=== PATIENT | female | born 1955 | race Caucasian/White ===

== ENCOUNTER 2020-12-22 14:03 | Outpatient (CLI) | payer MEDICARE, BC, SELFPAY ==
--- NOTE | 2020-12-22 14:16 | MM_ITS ---
WS: [id number] BILATERAL DIGITAL SCREENING MAMMOGRAPHY WITH CAD CLINICAL INFORMATION: SCREENING HISTORY: Screening mammogram. No current complaints. COMPARISON: 018 TECHNIQUE: Bilateral CC and MLO views. FINDINGS: Bilateral breast implants are unchanged in appearance. Ruptured and collapsed left breast i mplant. This is unchanged. Capsular calcifications bilaterally. Intact right breast implant. The breasts are composed of heterogeneous fibroglandular density tissue, which can limit the detectio n of small underlying mass lesions. Asymmetric density upper outer left breast best seen on the MLO v iew measuring 12 mm is new from previous. Recommend spot compression views and ultrasound for further evaluation. Right breast is unremarkable and unchanged. MM/[place] [id number] IMPRESSION: BI-RADS: 0-Incomplete: Need additional imaging evaluation FOLLOW UP: Need Additional Imaging RECOMMEND LEFT BREAST DIAGNOSTIC MAMMOGRAPHY AND ULTRASOUND.
--- NOTE | 2020-12-22 14:57 | XR_ITS ---
WS: [id number] Bone mineral density performed on a Clew, 12/22/2020. Clinical data: POSTMENOPAUSAL Findings: The first 4 lumbar vertebral bodies demonstrated the bone mineral density of 1.007 g/cm2 for a young adult T score of -1.4. Measurement of the left hip reveals a bone mineral density of 0.810 g/cm2 with a young adult T score of -1.6. Measurement of the right hip reveals the bone mineral density of 0.809 g/cm2 for young adult T score of -1.6. XR/XR DEXA axial skeleton* [id number] Impression: Osteopenia of the lumbar spine and both hips.
== END 2020-12-22 14:04 | disposition home or self-care (01) ==
PROVIDERS: PCP Family Medicine; Visit Provider Family Medicine
DX: Z12.31 Encounter for screening mammogram for malignant neoplasm of breast (principal); Z78.0 Asymptomatic menopausal state; M85.88 Other specified disorders of bone density and structure, other site; R92.1 Mammographic calcification found on diagnostic imaging of breast
CPT/HCPCS: 77067; 77080

== ENCOUNTER 2021-01-23 07:34 | Outpatient (CLI) | payer MEDICARE, BC, SELFPAY ==
--- NOTE | 2021-01-23 07:48 | US_ITS ---
WS: [id number] LEFT DIGITAL MAMMOGRAPHY WITH CAD CLINICAL INFORMATION: LT BREAST ASYMMETRIC DENSITY COMPARISON: None. TECHNIQUE: 3 views of the left breast were obtained. FINDINGS: The left breast is composed of heterogeneous fibroglandular density tissue, which can limit the detec tion of small underlying mass lesions. Stable asymmetric density upper outer left breast measuring 12 mm is stable. Ultrasound is pending. ULTRASOUND BREAST LEFT TECHNIQUE: Ultrasound left breast focused area of concern. CLINICAL INFORMATION: LT BREAST ASYMMETRIC DENSITY COMPARISON: None. FINDINGS: Dense hypoechoic lesion at the 2:00 position 2 cm from the nipple. This measures 1.0 x 0.85 x 0.85 cm . This lesion is indeterminant and recommend further evaluation with ultrasound-guided biopsy. US/US breast LT limited* [id number] IMPRESSION: BI-RADS: 4-Suspicious Finding-Biopsy Should Be Considered FOLLOW UP: US Guided Biopsy Recommended
== END 2021-01-23 07:35 | disposition home or self-care (01) ==
LOC: RADSHAW 07:40
PROVIDERS: PCP Family Medicine; Visit Provider Family Medicine
DX: N64.89 Other specified disorders of breast (principal); N63.11 Unspecified lump in the right breast, upper outer quadrant
CPT/HCPCS: 76642; 77065

== ENCOUNTER 2021-02-06 14:29 | Outpatient (CLI) | payer MEDICARE, BC, SELFPAY ==
--- NOTE | 2021-02-06 14:47 | XRR_ITS ---
PROCEDURE INFORMATION: Exam: XR Chest Exam date and time: 02/06/2021 3:10 PM Age: 65 years old Clinical indication: Cough TECHNIQUE: Imaging protocol: XR of the chest. Views: 2 views. COMPARISON: No relevant prior studies available. FINDINGS: Lungs: Unremarkable. No consolidation. Pleural spaces: Unremarkable. No pleural effusion. No pneumothorax. Heart/Mediastinum: Unremarkable. No cardiomegaly. Bones/joints: Degenerative change is identified in the spine. There is no evidence for acute fracture or malalignment. XR/XR chest 2V* [id number] IMPRESSION: There are no acute concerning abnormalities.
== END 2021-02-06 14:30 | disposition home or self-care (01) ==
PROVIDERS: PCP Family Medicine; Visit Provider Family Medicine
DX: R05 Cough (principal)
CPT/HCPCS: 71046

== ENCOUNTER 2021-02-10 07:20 | Outpatient (CLI) | payer MEDICARE, BC, SELFPAY ==
--- NOTE | 2021-02-10 07:34 | US_ITS ---
WS: [id number] ULTRASOUND LEFT BREAST HISTORY: L BREAST ABNORMAL MAMMOGRAM COMPARISON: 01/23/2021 TECHNIQUE: 2-D and Doppler. Mass recently described at 2:00 is no longer apparent. There is dense fibroglandular tissue but there is no masslike structure or increased vascularity. At this time no biopsy is recommended. Recommend follow-up 6 month diagnostic LEFT mammogram. Discuss ed these findings with the patient. US/US breast LT limited* [id number] IMPRESSION: BI-RADS: 3-Probably Benign FOLLOW-UP: 6 Month Follow-up No biopsy performed today as there were no concerning findings in the LEFT [address] st at 2:00. Recommend follow-up diagnostic mammogram and possible ultrasound in 6 months.
== END 2021-02-10 07:21 | disposition home or self-care (01) ==
LOC: RAD 07:28
PROVIDERS: PCP Family Medicine; Visit Provider Family Medicine
DX: R92.8 Other abnormal and inconclusive findings on diagnostic imaging of breast (principal)
CPT/HCPCS: 19083; 76642

== ENCOUNTER 2021-12-18 08:13 | Outpatient (CLI) | payer MEDICARE, BC, SELFPAY ==
--- NOTE | 2021-12-18 08:25 | CT_ITS ---
WS: [id number] CT scan of the abdomen with Oral and IV contrast. Additional two-dimensional coronal and sagittal rec onstruction was performed. Clinical Data: ABD PAIN Comparison: None. DLP: 494.[address] scans at [facility] use at least one of these dose optimization techniques: automated e xposure control; mA and/or kV adjustment per patient size (includes targeted exams where dose is matc hed to clinical indication); or iterative reconstruction. Findings: The lower lungs show no nodules, masses or effusions. The liver, gallbladder, spleen, adrenal glands and pancreas are normal. The kidneys show equal bilateral contrast excretion with no cyst or masses. No intrarenal calcificati ons or hydronephrosis is seen The abdominal aorta is normal in size. No appendicitis or diverticulitis is seen. Oral contrast is in the stomach and small bowel and there is no bowel dilatation. No abscess, adenopathy, ascites, mass, obstruction or free air is seen. The bones of the lower thorax and lumbar spine are normal CT/CT abdomen w con* [id number] Impression: Negative CT scan of the abdomen1.
[2021-12-18] MEDS: iohexol 300 mg/mL 50 mL Btl PO (09:31)
[2021-12-18 09:57] LABS: Blood Urea Nitrogen 13 mg/dL (8-23); Glomerular Filtration Rate 71.5 mL/min (90-130)
[2021-12-18] MEDS: iohexol 300 mg/mL 100 mL Btl IV (10:00)
== END 2021-12-18 08:14 | disposition home or self-care (01) ==
LOC: RAD 08:15
PROVIDERS: PCP Family Medicine; Visit Provider Family Medicine
DX: R10.13 Epigastric pain (principal); R07.81 Pleurodynia
CPT/HCPCS: 74160; 82565; 84520

== ENCOUNTER 2024-04-14 13:09 | Outpatient (CLI) | payer MEDICARE, BC, SELFPAY ==
--- NOTE | 2024-04-14 13:30 | XR_ITS ---
WS: [id number] SCREENING DEXA SCAN SIGFOX CLINICAL INFORMATION: screening COMPARISON: 2020 FINDINGS: The L1-L4 bone mineral density measures 0.984 g/cm2. This corresponds to a T score score of -1.6 and Z score of -0.1. Left femoral neck bone mineral density measures 0.791 g/cm2. This corresponds to a T score of -1.7 an d Z score of -0.4. Right femoral neck bone mineral density measures 0.808 g/cm2. This corresponds to a T score -1.6of an d Z score of -0.2. Mean femoral neck bone mineral density measures 0.799 g/cm2. This corresponds to a T score of -1.7 an d Z score of -0.3. XR/XR DEXA axial skeleton* [id number] IMPRESSION: Osteopenia lumbar spine. Osteopenia femoral necks. Patient's FRAX calculated 10 year probability for major osteoporotic fracture i s 12.8% and osteoporotic hip fracture is 2.9%. Lumbar spine bone mineral density decreased -2.3% Femoral bone mineral density decreased -1.2%
--- NOTE | 2024-04-14 14:00 | MM_ITS ---
WS: [id number] BILATERAL 3D TOMOSYNTHESIS DIGITAL SCREENING MAMMOGRAPHY WITH CAD CLINICAL INFORMATION: screening HISTORY: Screening mammogram. No current complaints. COMPARISON: 2018 TECHNIQUE: Bilateral CC and MLO views. FINDINGS: Stable deflation of the LEFT breast implant. Capsular calcifications RIGHT breast implant. The breasts are composed of heterogeneous fibroglandular density tissue, which can limit the detectio n of small underlying mass lesions. No suspicious mass, asymmetry, calcifications, or architectural d istortion. No evidence of malignancy. Stable punctate calcifications LEFT breast. MM/[place] [id number] IMPRESSION: BI-RADS: 2-Benign FOLLOW UP: 1 Year Follow-up Recommend return to annual screening mammography.
== END 2024-04-14 13:10 | disposition home or self-care (01) ==
LOC: RAD 13:10
PROVIDERS: PCP Family Medicine; Visit Provider Family Medicine
DX: Z12.31 Encounter for screening mammogram for malignant neoplasm of breast (principal); Z00.00 Encounter for general adult medical examination without abnormal findings
CPT/HCPCS: 77063; 77067; 77080; 80053; 80061; 85025